=== PATIENT | male | born 2000 | race Caucasian/White ===

== ENCOUNTER 2021-03-25 16:11 | Emergency (ER) | payer OTHER ==
[~2021-03-25] VITALS: Ht 188 cm; Wt 72.7 kg
[2021-03-25 17:24] VITALS: BP 121/86
[2021-03-25] MEDS: DOXYCYCLINE HYCLATE 100 MG TABLET PO ONE (17:37)
[2021-03-25] MEDS: PERTUSS(ACELL),DIPH,TET VAC/PF 0.5 ML SYRINGE IM. ONE (17:43)
== END 2021-03-25 18:07 | disposition home or self-care (01) ==
LOC: EMS 16:12
DX: T63.511A Toxic effect of contact with stingray, accidental (unintentional), initial encounter (principal); S91.301A Unspecified open wound, right foot, initial encounter; Y92.89 Other specified places as the place of occurrence of the external cause; Y93.89 Activity, other specified; Y99.8 Other external cause status
CPT/HCPCS: 90471; 90715; 99283

== ENCOUNTER 2023-01-13 15:41 | Emergency (ER) | payer OTHER ==
[~2023-01-13] VITALS: Ht 190.5 cm; Wt 77.3 kg
[2023-01-13 16:07] VITALS: BP 124/76
[2023-01-13] MEDS ORDERED: PENI500T2 PO (16:29)
== END 2023-01-13 23:32 | disposition still patient (30) ==
LOC: EMS 23:32
DX: S01.81XA Laceration without foreign body of other part of head, initial encounter (principal); S01.511A Laceration without foreign body of lip, initial encounter; W20.8XXA Other cause of strike by thrown, projected or falling object, initial encounter; Y93.89 Activity, other specified; Y92.89 Other specified places as the place of occurrence of the external cause; Y99.8 Other external cause status
CPT/HCPCS: 12013; 99283